=== PATIENT | female | born 1990 | race Hispanic/Latino ===

== ENCOUNTER 2016-12-21 09:03 | Emergency (ER) | payer OTHER ==
[~2016-12-21] VITALS: Ht 160 cm; Wt 91.4 kg
[~2016-12-21 09:03] MED LIST: PNV1TABL57 PO
[2016-12-21 09:05] VITALS: BP 122/82; PULSE 72; RESP 16; O2SAT 98
--- NOTE | 2016-12-21 09:08 | ED.REPORT ---
HPI- Female Date of Service Dec 21, 2016 ED Provider: Dr. Burns Pt is a 6-7 week 26 y/o female w/ a hx of presenting to the ED c/ o lower abdominal cramping onset 3 days ago. She c/o associated low back pain and lightheadedness. Pt denies vaginal bleeding, nausea, vomiting, SOB. 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 Her miscarriages usually progress to light vaginal spotting which develops into heavy bleeding. US taken 12/20/16 demonstrated "Single intrauterine redemonstrated with no heart motion identified on the current study. A yolk sac was also not discretely identified. The gestational sac diameter is minimally changed compared to the prior study from one week prior. The constellation of findings is suggestive of a nonviable and continued followup is recommended." Nursing Notes Stated Complaint: ABDOMINAL/BACK PAIN,6-7WKS Chief Complaint: General Complaint Nursing Notes Reviewed: Yes Allergies: Coded Allergies: No Known Allergies (Unverified Allergy, Unknown, 06/26/16) Miscellaneous Medications PNV CMB#95/FERROUS FUMARATE/FA-Expunged Drug, (-Expunged Drug, Do Not Renew!) 1 Each Tablet 1 EACH PO General Time Seen by MD: 09:13 Chief Complaint Abdominal pain... Hx Obtained From: Patient Arrived By: Walk-in Sudden in Onset?: No Onset Occurred: 3 days ago Symptom Duration: Since onset Location: : Abdomen lower Quality: Painful Severity: Current: Mild Severity: Maximum: Mild Past Medical History Past Medical History Notes: Past Medical History none reported Past Surgical History ovarian cyst removed Smoking History Never Smoker Social History Alcohol Use: In recovery Drug Use: Denies drug use Other Social History: Good social support, , Local resident Ambulatory Status Independent Review of Systems Constitutional: Denies: Chills, Fever GI: Reports: Abdominal pain, Denies: Nausea, Vomiting Female: Denies: Dysuria, Vaginal bleeding - abnl Musculoskeletal: Reports: Back pain, Denies: Neck pain Neurologic: Reports: Lightheaded, Denies: Change LOC Complete sys rev & neg: except as marked. Respiratory: Denies: Non-productive cough, Shortness of breath Physical Exam Initial Vital Signs Vital Signs (First) Date Time Temp Pulse Resp B/P Pulse Ox O2 Delivery O2 Flow Rate FiO2 3/22/17 09:05 36.9 72 16 122/82 98 Room Air Initial VS: Reviewed, Vital signs normal Head / Eyes: Atraumatic, Normocephalic, PERRL ENT: Mucous membranes moist, Conjunctiva normal, No scleral icterus Neck: Supple, Full range of motion Respiratory: Breath sounds normal, Clear to auscultation, No respiratory distress Cardiovascular: Regular rate & rhythm, Heart sounds normal, Intact distal pulses Extremities: Vascular intact, Neuro intact, No swelling, No tenderness Neurologic: Alert, Oriented, Nonfocal Psychiatric: Mood/affect normal, Behavior normal, Normal thought content Female Genitourinary: Exam deferred General/Constitutional: Awake, Alert, No acute distress, Well appearing, Cooperative, Not toxic appearing BP laying down 124/80, standing up 135/85 HR laying down 74, standing up 83 Abdomen: Atraumatic, Soft, No guarding, No rebound Tenderness/Guarding/Rebound: Positive: Tender LLQ... (Mild) Skin: Atraumatic, Color NL, No rash, Warm, Dry, Intact, Turgor NL, No swelling Interpretation & Diagnostics Lab Results Interpretation Test 12/21/16 09:21 Hold Urine Received (Received) Lab Results Interpretation: Urine dip: negative Re-Eval/Medical Decision Source of Hx: Old records Re-Evaluation/Progress : Time of Eval: 09:34 Re-Evaluation/Progress Note: Pt rechecked. Informed pt of plan for treatment. Pt understands and agrees with plan for treatment. F/U and RTER warnings given. All questions addressed. Consultation : Referral / Consult Name: Harvey Adhikari MD Consulted With: Primary care physician Call Returned at: 09:33 Disaster Director: Agrees with eval, Agrees with plan Note: Discussed case with her PCP. Will see in F/U. Counseled Regarding: Diagnosis, Need for follow-up, When/why to return to ED Discharge & Departure Impression: Primary Impression: Miscarriage Disposition: Home Discharge Condition All VS Reviewed: Yes Condition: Stable Patient Instructions: Spontaneous Miscarriage (ED) Additional Instructions: Your ultrasound from yesterday shows no heart beat and no growth from last week. With the cramping you are feeling now, I would expect the spotting and bleeding to start in the next day or so. I have let Dr Adhikari know that you were in and are aware of the ultrasound results. He said you had an apt with him this afternoon and he would like you to keep it. 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 There is nothing that makes the loss of a any easier. I am sorry for the loss. Referrals: Harvey Adhikari MD (PCP) Scribe Attestation Portions of this note were transcribed by Jarvis Yo. I, Dr. Burns personally performed the history, physical exam and medical decision-making; I reviewed and confirmed the accuracy of the information in the transcribed note. Signed by Javan Gamboa, 12/21/16 - 1000 copies to: Harvey Adhikari MD, Shawna L MD Dec 21, 2016 09:07 JARVIS YO Dec 21, 2016 09:13
== END 2016-12-21 09:37 | disposition home or self-care (01) ==
LOC: SED 09:03
DX: O03.9 Complete or unspecified spontaneous abortion without complication (principal); Z3A.01 Less than 8 weeks gestation of pregnancy

== ENCOUNTER 2017-02-28 02:01 | Emergency (ER) | payer OTHER ==
[~2017-02-28] VITALS: Ht 160 cm; Wt 90.9 kg
[2017-02-28 02:04] VITALS: BP 146/98; PULSE 91; RESP 18; O2SAT 99
--- NOTE | 2017-02-28 02:15 | ED.REPORT ---
HPI-Abd Pain F Under 40 Date of Service February 28, 2017 ED Provider: Clayton Roger MD The patient is an otherwise healthy 26 year old female who presents to the ED complaining of sharp abdominal pain onset yesterday morning. The pain is radiating to her lower back. This is accompanied by nausea but she denies vomiting, diarrhea, and fever, dysuria, or increased urine frequency. The patient denies any history of appendectomy or cholecystectomy. Nursing Notes Stated Complaint: ABDOMINAL PAIN Chief Complaint: Female Abdominal Pain Nursing Notes Reviewed: Yes Allergies: Coded Allergies: No Known Allergies (Unverified Allergy, Unknown, 02/28/17) Miscellaneous Medications PNV CMB#95/FERROUS FUMARATE/FA-Expunged Drug, (-Expunged Drug, Do Not Renew!) 1 Each Tablet 1 EACH PO General Time Seen by MD: 02:14 Chief Complaint Abdominal pain Hx Obtained From: Patient Arrived By: Walk-in Sudden in Onset?: No Onset Occurred: 1 day ago Symptom Duration: Since onset Location: : Diffuse Quality: Painful Radiation: : Back Severity: Current: Moderate Severity: Maximum: Moderate Recent Healthcare: Recent doctor visit Similar Sx Previous: No Past Medical History Past Medical History Notes: Past Medical History none reported Denies: Congestive heart failure, Diabetes mellitus, Hypertension Past Surgical History ovarian cyst removal Smoking History Never Smoker Social History Alcohol Use: Denies alcohol use Drug Use: Denies drug use Other Social History: Good social support, , Local resident Ambulatory Status Independent Review of Systems Constitutional: Denies: Fever GI: Reports: Abdominal pain, Nausea, Denies: Diarrhea, Vomiting Female: Denies: Dysuria, Urinary frequency Musculoskeletal: Reports: Back pain Complete sys rev & neg: except as marked. Physical Exam Initial Vital Signs Vital Signs (First) Date Time Temp Pulse Resp B/P Pulse Ox O2 Delivery O2 Flow Rate FiO2 02/28/17 02:04 36.6 91 18 146/98 99 Room Air Initial VS: Reviewed, Vital signs normal General/Constitutional: Awake, Alert Distress / Hydration: Positive: Distress moderate Behavior: Positive: Tearful Respiratory / Chest: Atraumatic, Breath sounds NL, Breath sounds = bilat, No respiratory distress Cardiovascular: Heart rate NL, Regular rhythm, Heart sounds NL Abdomen: No guarding, No distention Diffuse mild abdominal tenderness without localization Back: Atraumatic, Full range of motion Head / Eyes: Atraumatic, Normocephalic, PERRL, EOMI ENT: Atraumatic, Airway patent, Mucous membranes moist, Pharynx NL Skin: Warm, Dry, Intact Upper Extremity / MS: Neurologic intact, Vascular intact Lower Extremity / Pelvis / MS: Neurologic intact, Vascular intact Interpretation & Diagnostics Lab Results Interpretation Result Diagram: 02/28/17 0245 02/28/17 0245 Test 02/28/17 02:20 02/28/17 02:45 Hold Urine Received (Received) White Blood Count 10.0th/mm3 (3.8-10.1) Red Blood Count 4.72mil/mm3 (3.90-5.20) Hemoglobin 12.7g/dL (12.0-15.6) Hematocrit 37.2% (35.0-46.0) Mean Corpuscular Volume 78.8fL (81-100) Mean Corpuscular Hemoglobin 26.9pg (27.0-35.0) Mean Corpuscular Hemoglobin Concent 34.1% (32.0-37.0) Red Cell Distribution Width 12.9% (12.3-15.4) Platelet Count 261bil/L (150-400) Neutrophils (%) (Auto) 51.2% (40-74) Lymphocytes (%) (Auto) 38.5% (14-46) Monocytes (%) (Auto) 8.3% (4-12) Eosinophils (%) (Auto) 1.3% (0-5) Basophils (%) (Auto) 0.5% (0-3) Sodium Level 140mEq/L (134-144) Potassium Level 3.4mEq/L (3.5-5.2) Chloride Level 101mEq/L (97-108) Carbon Dioxide Level 24mmol/L (18-29) Blood Urea Nitrogen 15mg/dL (6-20) Creatinine 0.62mg/dL (0.57-1.00) Estimat Glomerular Filtration Rate 167mL/min (>59) Glucose Level 121mg/dL (60-99) Calcium Level 9.2mg/dL (8.5-10.1) Magnesium Level 2.0mg/dL (1.6-2.6) Total Bilirubin 0.5mg/dL (0.0-1.2) Aspartate Amino Transf (AST/SGOT) 28U/L (0-50) Alanine Aminotransferase (ALT/SGPT) 40U/L (0-32) Alkaline Phosphatase 95U/L (25-150) Total Protein 7.5g/dL (6.4-8.4) Albumin 4.3g/dL (3.4-5.0) Lipase 45U/L (13-60) Hold Gary Top Tube Received (Received) Lab values outside NL range: no clinical significance. Lab Results Interpretation: Dip urine normal Re-Eval/Medical Decision Med Decision/Clinical Course [id number] female with diffuse abdominal pain and nausea which resolved spontaneously. There are no significant lab abnormalities. Imaging is not indicated this time. She is being discharged home. She will talk to her outpatient provider about getting an outpatient ultrasound to rule out gallstones. Return to the emergency room for significant worsening. Source of Hx: Old records Re-Evaluation/Progress : Time of Eval: 00:32 Patient Status: Condition improved Re-Evaluation/Progress Note: Patient was rechecked. She informed of normal labs and outpatient ultrasound. Informed patient of plan for discharge. Patient understands and agrees with plan for discharge. F/U instructions and RTER warnings given. All questions addressed. Counseled Regarding: Diagnosis, Lab results, Need for follow-up, When/why to return to ED Discharge & Departure Primary Impression: Abdominal pain Abdominal location: generalized Qualified Code: R10.84 - Generalized abdominal pain Disposition: Home Discharge Condition All VS Reviewed: Yes Condition: Stable Patient Instructions: Acute Abdominal Pain (ED) Additional Instructions: The cause of your abdominal pain is uncertain, but does not appear to be serious or surgical. Your labs are normal including urinalysis. Your pain may be due to gallbladder disease. Recommend that you eat small meals and avoid fatty foods. Talk to your primary doctor about getting an ultrasound to look for gallstones. Return here if you have significant worsening.Call me at [phone] between the hours of 9 PM and 6 AM for the next couple nights if there are any questions or concerns. Referrals: Harvey Adhikari MD (PCP) Scribe Attestation Portions of this note were transcribed by Gordon Fernandez and Jesica Johnson. I, Dr. Roger personally performed the history, physical exam and medical decision-making; I reviewed and confirmed the accuracy of the information in the transcribed note. Signed by: Gordon Fernandez and Javan Joshi, and [id number]. copies to: Harvey Adhikari MD, Howard L MD February 28, 2017 02:15 Jesica Snyder February 28, 2017 02:22 GORDON FERNANDEZ February 28, 2017 04:07 GORDON FERNANDEZ February 28, 2017 04:07 Signed by: Gordon Fernandez and Javan Joshi, 02/28/17 and 0340. copies to: Harvey Adhikari MD, Howard L MD February 28, 2017 02:15 Jesica Snyder February 28, 2017 02:22
[2017-02-28] MEDS ORDERED: 0.9% Sodium Chloride 1,000 ML IV ONE (02:19)
[2017-02-28] MEDS ORDERED: HYDROmorphone 0.5 mg/0.5 mL iSecure Syringe IVPUSH PRN (02:20)
[2017-02-28] MEDS ORDERED: Ondansetron 2 mg/mL 2 mL Inj IVPUSH PRN (02:20)
[2017-02-28 03:01] LABS: BASOPHILS % (AUTO) 0.5 % (0-3); EOSINOPHILS % (AUTO) 1.3 % (0-5); MONOCYTES % (AUTO) 8.3 % (4-12); Mean Corpuscular Hemoglobin 26.9 pg (27.0-35.0); Mean Corpuscular Volume 78.8 fL (81-100); NEUTROPHILS % (AUTO) 51.2 % (40-74); Platelet Count 261 bil/L (150-400)
[2017-02-28 03:56] VITALS: BP 130/89; PULSE 62; RESP 16; O2SAT 100
== END 2017-02-28 03:49 | disposition home or self-care (01) ==
LOC: SED 02:01
DX: R10.84 Generalized abdominal pain (principal); R11.0 Nausea
CPT/HCPCS: 36415; 80053; 81025; 83690; 83735; 85025; 96361; 96374; 96375; 99284; J1170; J2405; J7030

== ENCOUNTER 2017-03-28 23:21 | Emergency (ER) | payer OTHER ==
[~2017-03-28] VITALS: Ht 162.6 cm; Wt 90.9 kg
[2017-03-28 23:26] VITALS: BP 123/80; PULSE 92; RESP 16; O2SAT 97
[2017-03-29 00:35] LABS: BASOPHILS % (AUTO) 0.2 % (0-3); EOSINOPHILS % (AUTO) 0.1 % (0-5); MONOCYTES % (AUTO) 9.1 % (4-12); Mean Corpuscular Hemoglobin 26.1 pg (27.0-35.0); Mean Corpuscular Volume 78.4 fL (81-100); NEUTROPHILS % (AUTO) 74.4 % (40-74); Platelet Count 230 bil/L (150-400)
[2017-03-29] MEDS ORDERED: cefTRIAXone Inj 2,000 MG in Dextrose 5% Minibag Plus 50 ML IV ONE (00:35)
[2017-03-29] MEDS ORDERED: 0.9% Sodium Chloride 1,000 ML IV SCH (00:35)
[2017-03-29] MEDS ORDERED: Dexamethasone Inj 20 MG in 0.9% Sodium Chloride-Pha MIX 50 ML IV ONE (00:35)
--- NOTE | 2017-03-29 01:26 | ED.REPORT ---
HPI-Sore Throat ONLY HPI/PE done Mar 29, 2017 ED Provider: Chris Baltazar DO Pt is an otherwise healthy 26 year old female who presents to the ED complaining of sore throat onset yesterday. She c/o associated fever, body aches , vomiting, headache, and dizziness. She denies dysuria, cough, nasal drainage, and diarrhea. Pt reports that she is not . Nursing Notes Stated Complaint: BODY ACHES,DIZZINESS,SORE THROAT Chief Complaint: FLU/Cold Symptoms Nursing Notes Reviewed: Yes Allergies: Coded Allergies: No Known Allergies (Unverified Allergy, Unknown, 02/28/17) Miscellaneous Medications PNV CMB#95/FERROUS FUMARATE/FA-Expunged Drug, (-Expunged Drug, Do Not Renew!) 1 Each Tablet 1 EACH PO General Time Seen by MD: 00:00 Chief Complaint Sore throat Hx Obtained From: Patient Arrived By: Walk-in Onset Occurred: Just prior to arrival Symptom Duration: Since onset Quality: Painful Severity: Current: Moderate Severity: Maximum: Moderate Recent Healthcare: Recent doctor visit Similar Sx Previous: No Past Medical History Past Medical History Notes: Past Medical History none reported Denies: Congestive heart failure, Diabetes mellitus, Hypertension Past Surgical History ovarian cyst removal Smoking History Never Smoker Social History Alcohol Use: Denies alcohol use Drug Use: Denies drug use Other Social History: Good social support, , Local resident Ambulatory Status Independent Review of Systems Constitutional: Reports: Fever Ears / Nose / Throat: Reports: Sore throat, Denies: Nasal congestion Respiratory: Denies: Non-productive cough GI: Denies: Diarrhea Neurologic: Reports: Dizziness, Headache Complete sys rev & neg: except as marked. Physical Exam Initial Vital Signs Vital Signs (First) Date Time Temp Pulse Resp B/P Pulse Ox O2 Delivery O2 Flow Rate FiO2 03/28/17 23:26 37.8 92 16 123/80 97 Room Air Initial VS: Reviewed Head / Eyes: Atraumatic, Normocephalic Respiratory: Breath sounds normal, Clear to auscultation, No respiratory distress Cardiovascular: Regular rate & rhythm, Heart sounds normal, Intact distal pulses Abdomen / GI: Soft, Non-tender Extremities: Vascular intact, Neuro intact Skin: Warm, Dry, No cyanosis Neurologic: Alert, Oriented, Nonfocal Psychiatric: Mood/affect normal, Behavior normal General/Constitutional: Awake, Alert, Cooperative ENT: Atraumatic, Airway patent Erythematous tonsils. Impressive exudates tontillitus with no signs of an abscess. Neck: Atraumatic, Full range of motion No meningitis. Interpretation & Diagnostics Lab Results Interpretation Result Diagram: 03/29/17 0030 03/29/17 0015 Test 03/29/17 00:15 03/29/17 00:16 03/29/17 00:30 03/29/17 01:04 Sodium Level 137mEq/L (134-144) Potassium Level 3.4mEq/L (3.5-5.2) Chloride Level 99mEq/L (97-108) Carbon Dioxide Level 21mmol/L (18-29) Blood Urea Nitrogen 14mg/dL (6-20) Creatinine 0.62mg/dL (0.57-1.00) Estimat Glomerular Filtration Rate 167mL/min (>59) Glucose Level 102mg/dL (60-99) Calcium Level 8.9mg/dL (8.5-10.1) Hold Gary Top Tube Received (Received) White Blood Count 13.2th/mm3 (3.8-10.1) Red Blood Count 4.64mil/mm3 (3.90-5.20) Hemoglobin 12.1g/dL (12.0-15.6) Hematocrit 36.4% (35.0-46.0) Mean Corpuscular Volume 78.4fL (81-100) Mean Corpuscular Hemoglobin 26.1pg (27.0-35.0) Mean Corpuscular Hemoglobin Concent 33.2% (32.0-37.0) Red Cell Distribution Width 13.3% (12.3-15.4) Platelet Count 230bil/L (150-400) Neutrophils (%) (Auto) 74.4% (40-74) Lymphocytes (%) (Auto) 16.0% (14-46) Monocytes (%) (Auto) 9.1% (4-12) Eosinophils (%) (Auto) 0.1% (0-5) Basophils (%) (Auto) 0.2% (0-3) Monoscreen Negative (Negative) Re-Eval/Medical Decision Med Decision/Clinical Course Bedside strep test is positive. She has clinical strep pharyngitis. Laboratory work shows leukocytosis otherwise reassuring. No signs or symptoms of sepsis or meningitis. She is treated with IV antibiotics IV steroids and pain meds. At discharge she looked and felt much better. Tendon course of amoxicillin prescribed. Close outpatient follow-up. Routine opiate warnings given. Source of Hx: Old records Re-Evaluation/Progress : Time of Eval: 01:37 Re-Evaluation/Progress Note: Pt rechecked. Informed pt of plan for discharge. Pt understands and agrees with plan for discharge. F/U instructions and RTER warnings given. All questions addressed. Counseled Regarding: Diagnosis, Lab results, Need for follow-up, When/why to return to ED Discharge & Departure Primary Impression: Strep tonsillitis Disposition: Home Discharge Condition All VS Reviewed: Yes Patient Instructions: Strep Throat (DC) Additional Instructions: you have strep throat. Take amoxicillin twice daily for 10 days. [place] one every 6 hours as needed for severe pain. Do not drive or drink alcohol or consume acetaminophen while taking the [place]. Follow up next with her primary care physician. Return if any problems or any new or worsening symptoms. Referrals: Harvey Adhikari MD (PCP) [place] Attestation Portions of this note were transcribed by Jesica Johnson. I, Dr. Baltazar personally performed the history, physical exam and medical decision-making; I reviewed and confirmed the accuracy of the information in the transcribed note. Signed by: Javan Joshi, 03/29/17 and 01:50. Chris Baltazar DO Mar 29, 2017 01:26 Jesica Snyder Mar 29, 2017 01:44
[2017-03-29 01:42] VITALS: BP 109/70; PULSE 67; RESP 20; O2SAT 97
== END 2017-03-29 01:42 | disposition home or self-care (01) ==
LOC: SED 23:21
DX: J03.00 Acute streptococcal tonsillitis, unspecified (principal)
CPT/HCPCS: 36415; 80048; 85025; 86308; 87880; 96361; 96365; 96375; 99284; J0696; J1100; J1885; J7030